=== PATIENT | female | born 1970 | race Caucasian/White ===

== ENCOUNTER 2020-12-10 10:37 | Day surgery (SDC) | payer BC ==
[~2020-12-10] VITALS: Ht 167.6 cm; Wt 129.7 kg
[~2020-12-10 10:37] MED LIST: ALBU2.5V5 INH; ALLEGRA ALLERG180 MG PO; BREO ELLIPTA 11 EAC1 INH; CLOB.05TO TOP; FAMO40 PO; Metoprolol Succ25 MG PO; SERT100 PO
--- NOTE | 2020-12-10 11:44 | NUR ---
12/10/20 1144 Nick Brar CALL LIGHT WITHIN REACH
== END 2020-12-10 13:33 | disposition home or self-care (01) ==
LOC: ORSCSDS 10:37
PROVIDERS: Student in an Organized Health Care Education/Training Program
PROC: 0DBN8ZX Excision of Sigmoid Colon, Via Natural or Artificial Opening Endoscopic, Diagnostic (ICD-10-PCS; principal; 2020-12-10 12:00)
PROC: 0DBL8ZX Excision of Transverse Colon, Via Natural or Artificial Opening Endoscopic, Diagnostic (ICD-10-PCS; principal; 2020-12-10 12:00)
DX: Z12.11 Encounter for screening for malignant neoplasm of colon (principal); D12.3 Benign neoplasm of transverse colon; D12.5 Benign neoplasm of sigmoid colon; Z85.3 Personal history of malignant neoplasm of breast; F41.9 Anxiety disorder, unspecified; Z79.899 Other long term (current) drug therapy; F43.10 Post-traumatic stress disorder, unspecified; E66.01 Morbid (severe) obesity due to excess calories; Z68.42 Body mass index [BMI] 45.0-49.9, adult
CPT/HCPCS: 88305; J2704; J7120

== ENCOUNTER 2023-08-11 08:49 | Day surgery (SDC) | payer BC ==
[2023-08-11] VITALS (9 sets, daily range): BP systolic 113–132; BP diastolic 70–106
[~2023-08-11] VITALS: Ht 167.6 cm; Wt 130.0 kg
[2023-08-11] MEDS ORDERED: CeFAZolin Sodium 2,000 MG in NS 50 ML IV SCH (09:20)
[2023-08-11] MEDS ORDERED: Lactated Ringer's 1,000 ML IV SCH (09:20)
[2023-08-11] MEDS ORDERED: Bupivacaine 0.5% HCl 5 MG/ML 30MLVIAL ONE (10:56)
[2023-08-11] MEDS ORDERED: CeFAZolin 1000MG in D5W 50 ML IV SCH (11:00)
[2023-08-11] MEDS ORDERED: Midazolam HCl 1MG / ML 2ML Vial IV SCH (11:05)
[2023-08-11] MEDS ORDERED: Midazolam HCl 1MG / ML 2ML Vial ONE (11:10)
[2023-08-11] MEDS ORDERED: propofoL 20 ML IV ONE (11:12)
[2023-08-11] MEDS ORDERED: FentaNYL Citrate 50 MCG/ML 2 ML Injection ONE ×2 (11:12→11:46)
[2023-08-11] MEDS ORDERED: Dexamethasone Sod Phos 10 MG/ML 1ML VIAL ONE (11:15)
[2023-08-11] MEDS ORDERED: Ondansetron HCl 2 MG / ML 2ML Vial ONE (11:15)
[2023-08-11] MEDS ORDERED: Ketorolac Tromethamine 30mg Vial ONE (11:15)
[2023-08-11] MEDS ORDERED: CeFAZolin Sodium 1,000 MG in NS 50 ML IV SCH (11:20)
--- NOTE | 2023-08-11 12:38 | NUR ---
REPORT RECEIVED FROM ZION FRIEDMAN. VSS. PT ON RA. PT ABLE TO REPOSITION SELF IN BED. PT REQUESTING PO FLUIDS AND TOLERATING THEM WELL. PT DENIES PAIN, NAUSEA, OR OTHER DISCOMFORTS AT THIS TIME. PT AT BEDSIDE.
--- NOTE | 2023-08-11 13:10 | NUR ---
DISCHARGE NOTE SBAR FROM [facility]. PT A&OX4, BREATHING RA, NO COMPLAINTS, AT BEDSIDE, TOLERATING PO FLUIDS. SLIGHT BLOODY DISCHARGE ON UPPER STERI STRIP, OTHERWISE DRESSING FOR MEDIPORT IS CDI. Discharge instructions reviewed with patient. Patient verbalizes understanding. Copy given to patient to take home. Discharged via wheelchair to private car for ride home.
== END 2023-08-11 13:20 | disposition home or self-care (01) ==
LOC: ORSCMMR 08:49 → ORD 10:15 → ORSCMMR 13:20
PROVIDERS: Surgery
PROC: B543ZZA Ultrasonography of Right Jugular Veins, Guidance (ICD-10-PCS; principal; 2023-08-11 10:15)
PROC: 0JH63WZ Insertion of Totally Implantable Vascular Access Device into Chest Subcutaneous Tissue and Fascia, Percutaneous Approach (ICD-10-PCS; principal; 2023-08-11 10:15)
PROC: 05HM33Z Insertion of Infusion Device into Right Internal Jugular Vein, Percutaneous Approach (ICD-10-PCS; principal; 2023-08-11 10:15)
DX: C50.912 Malignant neoplasm of unspecified site of left female breast (principal); J45.909 Unspecified asthma, uncomplicated; K21.9 Gastro-esophageal reflux disease without esophagitis; F41.9 Anxiety disorder, unspecified; F43.10 Post-traumatic stress disorder, unspecified; Z79.899 Other long term (current) drug therapy; Z68.42 Body mass index [BMI] 45.0-49.9, adult
CPT/HCPCS: 77001; C1788; J0690; J1100; J1642; J1885; J2250; J2405; J2704; J3010; J7120

== ENCOUNTER 2023-09-02 03:52 | Day surgery (SDC) | payer BC ==
[2023-09-02 13:40] VITALS: BP 127/81
[2023-09-02] MEDS ORDERED: ONDA4ODT MM (13:49)
[2023-09-02] MEDS ORDERED: OLAN2.5 PO (13:50)
[2023-09-02] MEDS ORDERED: LIDO5TO TOP (13:50)
== END 2023-09-02 13:45 | disposition home or self-care (01) ==
LOC: ATC 03:52
DX: D70.1 Agranulocytosis secondary to cancer chemotherapy (principal); C50.912 Malignant neoplasm of unspecified site of left female breast; E55.9 Vitamin D deficiency, unspecified; E78.00 Pure hypercholesterolemia, unspecified; K21.9 Gastro-esophageal reflux disease without esophagitis; F32.9 Major depressive disorder, single episode, unspecified; Z87.891 Personal history of nicotine dependence; Z88.0 Allergy status to penicillin; Z88.2 Allergy status to sulfonamides; Z88.5 Allergy status to narcotic agent
CPT/HCPCS: Q5110